=== PATIENT | male | born 1970 | race Caucasian/White ===

== ENCOUNTER 2020-10-04 22:51 | Emergency (ER) | payer SELFPAY ==
[~2020-10-04] VITALS: Ht 185.4 cm; Wt 129.0 kg
[2020-10-04] MEDS ORDERED: MORPHINE SULFATE 4 MG/ML DISP.SYRIN. ONE (23:18)
[2020-10-04] MEDS ORDERED: MORPHINE SULFATE 2 MG/ML DISP.SYRIN. ONE (23:18)
[2020-10-04] MEDS ORDERED: ONDANSETRON PF 4 MG/2 ML VIAL. ONE (23:19)
[2020-10-04 23:26] LABS: BASO # 0.1 x10^3/uL (0.0-0.2); BASO % 1 % (0-3); EOS % 0 % (0-3); HEMATOCRIT 44.9 % (39.0-53.0); HEMOGLOBIN 15.3 g/dL (13.0-17.5); LYMPH # 1.4 x10^3/uL (1.0-4.8); LYMPH % 7 % (24-48); MEAN CORPUSCULAR HEMOGLOBIN 32 pg (25-35); MEAN CORPUSCULAR HGB CONC 34 g/dL (31-37); MEAN CORPUSCULAR VOLUME 93 fL (79-100); MONO # 1.4 x10^3/uL (0.0-1.1); MONO % 7 % (0-9); NEUT # 17.1 x10^3uL (1.8-7.7); NEUT % 85 % (31-73); PLATELET COUNT 226 x10^3/uL (140-400); RED BLOOD COUNT 4.85 x10^6/uL (4.30-5.70); RED CELL DISTRIBUTION WIDTH 13.4 % (11.5-14.5)
[2020-10-04] MEDS ORDERED: CONTRAST GIVEN. MC PRN (23:30)
[2020-10-04 23:34] LABS: BACTERIA,URINE 0 /HPF (0-FEW); BILIRUBIN,URINE NEG (NEG); CLARITY,URINE CLEAR; COLOR,URINE YELLOW; GLUCOSE,URINE NEG (NEG); NITRITE,URINE NEG (NEG); RBC,URINE 0 /HPF (0-2); SQUAMOUS EPITHELIAL CELL,UR FEW /LPF; UROBILINOGEN,URINE 0.2 mg/dL (0.2 mg/dL); WBC,URINE OCC /HPF (0-4)
[2020-10-04 23:38] LABS: CALCIUM 9.2 mg/dL (8.5-10.1); CREATININE 1.1 mg/dL (0.7-1.3); GFR 70.9
[2020-10-04 23:43] LABS: ALBUMIN/GLOBULIN RATIO 1.4 (1.0-1.7); TOTAL BILIRUBIN 0.5 mg/dL (0.2-1.0); TOTAL PROTEIN 6.9 g/dL (6.4-8.2)
[2020-10-04] MEDS ORDERED: IOHEXOL 300 MG/ML 75 ML VIAL. IV ONE (23:45)
[2020-10-04] MEDS ORDERED: ONDANSETRON PF 4 MG/2 ML VIAL. IVP ONE (23:45)
[2020-10-04] MEDS ORDERED: MORPHINE SULFATE 4 MG/ML DISP.SYRIN. IV ONE (23:45)
[2020-10-04] MEDS ORDERED: MORPHINE SULFATE 2 MG/ML DISP.SYRIN. IV ONE (23:45)
[2020-10-04 23:50] LABS: % BANDS 3 % (0-9); % LYMPHS 4 % (24-48); % MONOS 4 % (0-10); % SEGS 89 % (35-66); PLT ESTIMATE ADEQUATE (ADEQUATE)
--- NOTE | 2020-10-05 | RAD ---
CT ABDOMEN+PELVIS W History: Reason: RLQ pain Omni 300 75cc / Spl. Instructions: / History: Technique: After the administration of intravenous contrast, CT imaging was performed of the abdomen and pelvis. Multiplanar images are reviewed. Exposure: One or more of the following individualized dose reduction techniques were utilized for thi s examination: 1. Automated exposure control 2. Adjustment of the mA and/or kV according to patient size 3. Use of iterative reconstruction technique. Comparison: None Findings: Lower chest: Calcified left lower lobe pulmonary nodule, likely prior granulomatous disease. Abdomen and pelvis: Hepatic steatosis. Small hepatic hypodensities, too small to further characterize . The spleen, adrenal glands, pancreas and gallbladder are unremarkable. No biliary ductal dilatation . Patent portal veins. No hydronephrosis. No renal calculus. Decompressed urinary bladder. Normal appendix. No evidence of bowel obstruction. No pathologic lymphadenopathy. No ascites. The pro state is enlarged measures 5.7 x 4.6 cm. Small left fat-containing inguinal hernia. Small fat-contain ing umbilical hernia. Bones: Grade 1 anterolisthesis L3 on L4. Mild retrolisthesis L4 on L5. Moderate degenerative disc zoila nges. L3 chronic bilateral pars defects. Impression: 1. No acute abdominal or pelvic pathology. 2. Hepatic steatosis. 3. Prostamegaly. Electronically signed by: Pedro Esquivel DO (10/04/2020 11:57 PM) [facility]
--- NOTE | 2020-10-05 00:37 | PHYS DOC ---
Adult General Chief Complaint Chief Complaint: ABDOMINAL PAIN HPI HPI Patient is a 49-year-old male who presents to the emergency department with a chief complaint of right lower quadrant abdominal pain that started about 10 to 12 hours ago. States it is in his right lower quadrant, 7 out of 10, dull and achy in nature and states he feels bloated. States he had mild nausea but no vomiting. Denies any history of abdominal surgeries. Denies any recent traumas, travels, illnesses, fevers, chest pain, shortness of breath, vomiting, diarrhea, dysuria, hematuria or blood in the stool. Denies any alcohol or drug use. Review of Systems Review of Systems Review of systems otherwise unremarkable except noted in HPI Current Medications Current Medications Current Medications Medications (Trade) Dose Ordered Sig/Neris Start Time Stop Time Status Last Admin Dose Admin Info (Do NOT chart on this entry -- for MONITORING) 1 each PRN DAILY PRN 10/04/20 23:30 10/06/20 23:29 Iohexol (Omnipaque 300 Mg/ml) 75 ml 1X ONCE 10/04/20 23:45 10/04/20 23:46 DC 10/04/20 23:38 75 ML Morphine Sulfate (Morphine 2mg Syringe) 2 mg STK-MED ONCE 10/04/20 23:18 10/04/20 23:19 DC Morphine Sulfate (Morphine 4mg Syringe) 4 mg STK-MED ONCE 10/04/20 23:18 10/04/20 23:19 DC Ondansetron HCl (Zofran) 4 mg STK-MED ONCE 10/04/20 23:19 10/04/20 23:19 DC Allergies Allergies Allergies Coded Allergies Type Severity Reaction Last Updated Verified No Known Drug Allergies 10/04/20 No Physical Exam Physical Exam Constitutional: Well developed, well nourished, no acute distress, non-toxic appearance. [] HENT: Normocephalic, atraumatic, Eyes: conjunctiva normal, no discharge. [] Neck: Normal range of motion, no tenderness, supple, no stridor. [] Cardiovascular:Heart rate regular rhythm, no murmur [] Lungs & Thorax: Bilateral breath sounds clear to auscultation [] Abdomen: soft, generalized tenderness, no masses, no pulsatile masses. [] Skin: Warm, dry, no erythema, no rash. [] Back: , no CVA tenderness. [] Extremities: No tenderness, no cyanosis, no clubbing, ROM intact, no edema. [] Neurologic: Alert and oriented X 3, normal motor function, normal sensory function, no focal deficits noted. [] Psychologic: Affect normal, judgement normal, mood normal. [] Current Patient Data Vital Signs Vital Signs Date Time Temp Pulse Resp B/P (MAP) Pulse Ox O2 Delivery O2 Flow Rate FiO2 10/04/20 23:21 18 95 Room Air Lab Results Laboratory Tests Test 10/04/20 23:00 10/04/20 23:10 Urine Collection Type Unknown Urine Color Yellow Urine Clarity Clear Urine pH 5.5 Urine Specific [place] >=1.030 Urine Protein Neg (NEG-TRACE) Urine Glucose (UA) Neg mg/dL (NEG) Urine Ketones (Stick) Trace mg/dL (NEG) Urine Blood Neg (NEG) Urine Nitrite Neg (NEG) Urine Bilirubin Neg (NEG) Urine Urobilinogen Dipstick 0.2 mg/dL (0.2 mg/dL) Urine Leukocyte Esterase Neg (NEG) Urine RBC 0 /HPF (0-2) Urine WBC Occ /HPF (0-4) Urine Squamous Epithelial Cells Few /LPF Urine Bacteria 0 /HPF (0-FEW) Urine Mucus Mod /LPF White Blood Count 20.0 x10^3/uL (4.0-11.0) H Red Blood Count 4.85 x10^6/uL (4.30-5.70) Hemoglobin 15.3 g/dL (13.0-17.5) Hematocrit 44.9 % (39.0-53.0) Mean Corpuscular Volume 93 fL (79-100) Mean Corpuscular Hemoglobin 32 pg (25-35) Mean Corpuscular Hemoglobin Concent 34 g/dL (31-37) Red Cell Distribution Width 13.4 % (11.5-14.5) Platelet Count 226 x10^3/uL (140-400) Neutrophils (%) (Auto) 85 % (31-73) H Lymphocytes (%) (Auto) 7 % (24-48) L Monocytes (%) (Auto) 7 % (0-9) Eosinophils (%) (Auto) 0 % (0-3) Basophils (%) (Auto) 1 % (0-3) Neutrophils # (Auto) 17.1 x10^3uL (1.8-7.7) H Lymphocytes # (Auto) 1.4 x10^3/uL (1.0-4.8) Monocytes # (Auto) 1.4 x10^3/uL (0.0-1.1) H Eosinophils # (Auto) 0.0 x10^3/uL (0.0-0.7) Basophils # (Auto) 0.1 x10^3/uL (0.0-0.2) Segmented Neutrophils % 89 % (35-66) H Band Neutrophils % 3 % (0-9) Lymphocytes % 4 % (24-48) L Monocytes % 4 % (0-10) Platelet Estimate Adequate (ADEQUATE) Sodium Level 135 mmol/L (136-145) L Potassium Level 4.0 mmol/L (3.5-5.1) Chloride Level 100 mmol/L (98-107) Carbon Dioxide Level 26 mmol/L (21-32) Anion Gap 9 (6-14) Blood Urea Nitrogen 15 mg/dL (8-26) Creatinine 1.1 mg/dL (0.7-1.3) Estimated GFR (Cockcroft-Gault) 70.9 BUN/Creatinine Ratio 14 (6-20) Glucose Level 159 mg/dL (70-99) H Calcium Level 9.2 mg/dL (8.5-10.1) Total Bilirubin 0.5 mg/dL (0.2-1.0) Aspartate Amino Transferase (AST) 24 U/L (15-37) Alanine Aminotransferase (ALT) 44 U/L (16-63) Alkaline Phosphatase 71 U/L (46-116) Troponin I Quantitative < 0.017 ng/mL (0-0.055) Total Protein 6.9 g/dL (6.4-8.2) Albumin 4.0 g/dL (3.4-5.0) Albumin/Globulin Ratio 1.4 (1.0-1.7) Lipase 83 U/L (73-393) EKG EKG [] Radiology/Procedures Radiology/Procedures [] CT ABDOMEN+PELVIS W History: Reason: RLQ pain Omni 300 75cc / Spl. Instructions: / History: Technique: After the administration of intravenous contrast, CT imaging was performed of the abdomen and pelvis. Multiplanar images are reviewed. Exposure: One or more of the following individualized dose reduction techniques were utilized for this examination: 1. Automated exposure control 2. Adjustment of the mA and/or kV according to patient size 3. Use of iterative reconstruction technique. Comparison: None Findings: Lower chest: Calcified left lower lobe pulmonary nodule, likely prior granulomatous disease. Abdomen and pelvis: Hepatic steatosis. Small hepatic hypodensities, too small to further characterize. The spleen, adrenal glands, pancreas and gallbladder are unremarkable. No biliary ductal dilatation. Patent portal veins. No hydronephrosis. No renal calculus. Decompressed urinary bladder. Normal appendix. No evidence of bowel obstruction. No pathologic lymphadenopathy. No ascites. The prostate is enlarged measures 5.7 x 4.6 cm. Small left fat-containing inguinal hernia. Small fat-containing umbilical hernia. Bones: Grade 1 anterolisthesis L3 on L4. Mild retrolisthesis L4 on L5. Moderate degenerative disc changes. L3 chronic bilateral pars defects. Impression: 1. No acute abdominal or pelvic pathology. 2. Hepatic steatosis. 3. Prostamegaly. Heart Score C/O Chest Pain: No Risk Factors: Risk Factors: DM, Current or recent (<one month) smoker, HTN, HLP, family history of CAD, obesity. Risk Scores: Risk Factors: DM, Current or recent (<one month) smoker, HTN, HLP, family history of CAD, obesity. Course & Med Decision Making Course & Med Decision Making Patient is a 49-year-old male who presents with abdominal pain Vital signs not concerning. Physical exam noted above. Patient placed on the monitor with IV access established and IV fluid given. Given morphine for pain and Zofran for nausea. Laboratory analysis notable for leukocytosis but otherwise unremarkable. CT of the abdomen pelvis notable for hepatic steatosis and prostamegaly. On reassessment patient stated he was feeling much better and would be ready to be discharged home. Discussed all findings with patient. Advised on diet over the next couple of da ys. Advised on pain management at home. Advised to follow-up with his primary care physician first thing in the morning. Gave strict return precautions to the ED. Patient grateful, verbalized understanding and agreed with plan of discharge. Dragon Disclaimer Dragon Disclaimer This electronic medical record was generated, in whole or in part, using a voice recognition dictation system. Departure Departure: Impression: Primary Impression: Fatty liver disease, nonalcoholic Additional Impression: Abdominal pain Disposition: HOME / SELF CARE / HOMELESS Condition: IMPROVED Referrals: PCP,TAVO (PCP) CARYL CEBALLOS MD Patient Instructions: Abdominal Pain (Nonspecific) Additional Instructions: Thank you for coming into the emergency department tonight and allowing us to take care of you. Please read all the attached information above. As discussed over the next 3 days please eat a light clear diet. Please take your prescription pain and nausea medicines as prescribed. Please stay well-hydrated. Please follow-up in the morning with your primary care physician to discuss your ED visit and set up a follow-up as soon as you can to discuss continued evaluation and treatment of fatty liver disease.. Please come back to the emergency department immediately with new or concerning symptoms as discussed. Scripts Ondansetron Hcl (ZOFRAN) 4 Mg Tablet 1 TAB PO PRN Q6HRS PRN for NAUSEA, #20 TAB Prov: SCOTT BERRY MD 10/05/20 Hydrocodone Bit/Acetaminophen (HYDROCODONE-APAP 5-325 ) 1 Each Tablet 1 TAB PO TID PRN for abdominal pain for 3 Days, #9 TAB 0 Refills Prov: SOCTT BERRY MD 10/05/20 Problem Qualifiers SCOTT BERRY MD Oct 05, 2020 00:37
[2020-10-05] MEDS ORDERED: ONDA4TAB7 PO (00:42)
[2020-10-05] MEDS ORDERED: HYDR-2155 PO (00:42)
--- NOTE | 2020-10-05 00:49 | EKG ---
[address] [address] Test Date: 2020-10-04 Test Time: 23:46:09 Pat Name: PRIETO WINKLER Department: Room: Gender: M Employee Health Nurse: : 1970 Requested By: SCOTT BERRY Order Number: [id number] Reading MD: Measurements Intervals [place] Rate: 96 P: 28 MI: 138 QRS: 24 QRSD: 100 T: 14 QT: 344 QTc: 435 Interpretive Statements SINUS RHYTHM NORMAL ECG RI6.02 No previous ECG available for comparison
[2020-10-05] MEDS ORDERED: MORPHINE SULFATE 4 MG/ML DISP.SYRIN. IV ONE (01:00)
[2020-10-05] MEDS ORDERED: ONDANSETRON PF 4 MG/2 ML VIAL. IVP ONE (01:00)
[2020-10-05 01:04] VITALS: BP 117/58
== END 2020-10-05 01:10 | disposition home or self-care (01) ==
LOC: ER 22:51
DX: K76.0 Fatty (change of) liver, not elsewhere classified (principal); R10.31 Right lower quadrant pain
CPT/HCPCS: 36415; 74177; 80053; 81001; 83690; 84484; 85007; 85025; 93005; 96374; 96375; 96376; 99285; J2270; J2405; Q9967